=== PATIENT | female | born 1980 | race Two or more races ===

== ENCOUNTER 2025-01-17 18:10 | Emergency (ER) | payer MEDICAID, SELFPAY ==
[2025-01-17 18:44] VITALS: BP 134/89; PULSE 79; RESP 17; TEMP 37; O2SAT 99
--- NOTE | 2025-01-17 18:53 | XR_ITS ---
Examination: Toes left foot first digit 2 views Technique one AP lateral left first digit foot 2 views Date and time: January 22, 2025 1859 hrs. Indications: Left first digit foot pain and swelling 1 month Findings: Soft tissue swelling about the left foot first digit No fracture. No cortical bone destruction No foreign body Impression: No cortical bone obstruction no foreign body
--- NOTE | 2025-01-17 19:00 | PD.EDANKLE ---
Lower Extremity Injury RME/HPI General Chief Complaint: Ankle/Foot Injury Stated Complaint: PAIN IN L) GREAT TOE Time Seen by Provider: 01/17/25 18:53 Arrival date/time: 01/17/25 18:10 44F with possible history of DM (though patient is not sure if it was gestational only) presents to ED with 1 month of L big toe pain and discharge. Patient thinks it likely started with ingrown toenail. Patient went to PCP and got 5 days of penicillin w/o improvement. Limitations: no limitations Related Data Previous Rx's ?Medication ?Instructions ?Recorded Bisacodyl * (DULCOLAX *) 5 mg PO QDAY PRN CONSTIPATION ##40 04/08/15 Hydrocodone/Acetaminophen * (NORCO 1 tab PO Q12HR PRN ABDOMINAL 04/08/15 5/325 *) CRAMPING #12 tabs Vitamin * 1 tab PO QDAY #60 tabs 04/08/15 ibuprofen 600 mg tablet 600 mg PO Q8HR PRN PAIN #40 tabs 04/08/15 acetaminophen 300 mg-codeine 15 mg 1 tab PO Q12H PRN pain #14 tabs 11/09/23 tablet ibuprofen 800 mg tablet 800 mg PO Q8H PRN pain #20 tabs 11/09/23 clindamycin HCl 300 mg capsule 600 mg (2 x 300 mg) PO BID 7 days 01/17/25 #28 caps Allergies Allergy/AdvReac Type Severity Reaction Status Date / Time No Known Allergies Allergy Verified 01/17/25 18:14 Review of Systems Review of Systems Systems Reviewed: All systems reviewed, normal except as documented Constitutional Constitutional: Reports system reviewed and no additional complaints, except as documented, Denies fever(s) and Denies headache(s) ENT Ears, Nose, Mouth, and Throat: Denies disequilibrium and Denies headache(s) Cardiovascular Cardiovascular: Reports system reviewed and no additional complaints, except as documented, Denies chest pain and Denies dyspnea Respiratory Respiratory: Reports system reviewed and no additional complaints, except as documented, Denies cough and Denies dyspnea Gastrointestinal Gastrointestinal: Reports system reviewed and no additional complaints, except as documented, Denies abdominal pain, Denies nausea and Denies vomiting Integumentary/Breasts Skin/Breast: Reports as per HPI and Reports skin pain Neurologic Neurologic: Reports system reviewed and no additional complaints, except as documented, Denies confusion, Denies disequilibrium and Denies headache(s) Psychiatric Psychiatric: Denies confusion Past Medical History Past Medical History NEUROLOGIC: Negative Neurological Disorders or Seizures CARDIAC: Negative Cardiac Disorders or Congestive Heart Failure RESPIRATORY: Negative Chronic Obstructive Pulmonary Disease (COPD) GASTROINTESTINAL: Negative Gastrointestinal Disorders GENITOURINARY: Negative Genitourinary Disorders or Renal Disease REPRODUCTIVE: Negative Pelvic Inflammatory Disease MUSCULOSKELETAL: Negative Musculoskeletal Disorders ENDOCRINE: Positive Endocrine Disorders; Negative Diabetes Mellitus Type 1 or Diabetes Mellitus Type 2 HEMATOLOGIC: Negative Blood Disorders OTHER HISTORY: Negative Autoimmune Disease, Blood Transfusions, Blood Transfusion Reaction, Anesthesia Reactions, Organ Transplant, MRSA, Clostridium Difficile or Cancer Family History FAMILY HISTORY: Negative Family Psychiatric Problems, Family Respiratory Disorders, Family Cardiac Disorders, Family Gastrointestinal Problems or Family Cancer Surgical History SURGICAL: Positive Section; Negative Cardiac Surgery, Endocrine Surgery, Ear Surgery, Abdominal Surgery, Nephrectomy, Joint Replacement, Neurologic Surgery, Vasectomy or Organ Transplant Social History SMOKING STATUS: Never smoker ED Exam General Limitations: Present no limitations General appearance: Present alert and in no apparent distress Head Head exam: Present atraumatic Eye Eye exam: Present normal appearance, PERRL and EOMI ENT ENT exam: Present normal exam, normal oropharynx and mucous membranes moist Neck Neck exam: Present normal inspection, full ROM and trachea midline Chest Chest inspection: Present normal inspection and symmetric chest wall rise Respiratory Respiratory exam: Present normal lung sounds bilaterally Cardiovascular Cardiovascular exam: Present regular rate, normal rhythm and normal heart sounds Abdominal Exam Abdominal exam: Present soft and normal bowel sounds Extremities Exam Extremities exam: Present full ROM Expanded Lower Extremity Exam Foot/toe exam: Present full ROM (L big toenail), tenderness, swelling and erythema Back Exam Back exam: Present normal inspection and full ROM Neurological Exam Neurological exam: Present alert, oriented X3 and CN II-XII intact Psychiatric Psychiatric exam: Present normal affect and normal mood Skin Skin exam: Present warm, dry, intact and normal color Course Quality Measures none Orders Category Date Time Status XR toe LT min 2V Stat Exams 01/17/25 18:53 Completed Clindamycin [Cleocin] Med 01/17/25 19:31 Discontinued 300 mg PO X1 ONE Vital Signs Vital signs: Vital Signs Temperature 98.6 F 01/17/25 18:44 Pulse Rate 79 01/17/25 18:44 Respiratory Rate 17 01/17/25 18:44 Blood Pressure 134/89 H 01/17/25 18:44 Pulse Oximetry (%) 99 01/17/25 18:44 Oxygen Delivery Method Room Air 01/17/25 18:44 O2 at 99% on RA and WNLs Extremity Injury, Lower MDM Narrative MDM Narrative:: 44F with possible history of DM (though patient is not sure if it was gestational only) presents to ED with 1 month of L big toe pain and discharge. Patient thinks it likely started with ingrown toenail. Patient went to PCP and got 5 days of penicillin w/o improvement. Physical exam reveals L big toenail discharge and redness around nail. Patient is afebrile, calm, and alert. XR no osteo. Meds and addictions counselor assistant given. Patient data External records reviewed:: [facility] previous records Clinical information provided by:: patient Social determinants that could affect healthcare access:: none Patient has the following chronic illnesses:: DM How is presenting disease/condition affected by chronic disease/condition?: exacerbated by Evaluation data The following diagnostics were reviewed and interpreted by me:: radiology exam(s) Lab and/or radiology exams considered but not ordered:: ordered Interpretation Summary: above Medications / Prescriptions Medications or Prescriptions considered but not ordered:: ordered Medication administrations:: Medication Administration History Discontinued Medications Clindamycin HCl (Clindamycin 150 Mg Capsule) 300 mg PO X1 ONE Stop: 01/17/25 19:32 above Consultations Consultation(s) initiated? (list below): No Diagnosis Extremity Injury, Lower Differential Diagnosis: ankle sprain and strain, acute internal derangement of knee, puncture wound of foot, fracture of toe, ankle fracture and other (ingrown toenail, cellulitis, osteo) Most likely diagnosis given after review of the tests above:: ingrown toenail with infection Admission Indicated Admission indicated?: not indicated Admission Request Was there a request for admission?: No Disposition Plan Disposition Plan: Discharge Discharge Attestation Discharge Attestation: The patient and all family members were given an opportunity to ask questions and understood the discharge instructions. Discharge instructions specifically effects, indications for sooner follow up or return to the emergency department, and the expected course of current diagnosis. Patient condition: Stable Discharge Plan Plan Patient Disposition: HOME (Self Care) Discharge Disposition comment: Stable Prescriptions/Referrals Prescriptions/Med Rec: New clindamycin HCl 300 mg capsule 600 mg PO BID 7 Days Qty: 28 0RF No Action ibuprofen 600 MG tablet 600 mg PO Q8HR PRN (Reason: PAIN) Qty: 40 0RF Bisacodyl * (DULCOLAX *) 5 MG TABLET.DR 5 mg PO QDAY PRN (Reason: CONSTIPATION) Qty: 40 1RF Hydrocodone/Acetaminophen * (NORCO 5/325 *) 1 TAB tablet 1 tab PO Q12HR PRN (Reason: ABDOMINAL CRAMPING) Qty: 12 0RF Vitamin * 1 EACH tablet 1 tab PO QDAY Qty: 60 0RF acetaminophen-codeine 300-15 mg tablet 1 tab PO Q12H PRN (Reason: pain) Qty: 14 0RF ibuprofen 800 mg tablet 800 mg PO Q8H PRN (Reason: pain) Qty: 20 0RF Referrals: Homer Barnett MD [Primary Care Provider] - In 1 week Problem List Clinical Impression: Ingrowing toenail with infection Patient/Caregiver Discharge Instructions Education Materials: ED Toenail Ingrown Infec Abx Onl Additional Instructions: Please follow-up with PCP within 24-48 hours and return immediately if symptoms worsen. See PCP for referral to podiatry. Finish ABX. Print Language: Bruneian Stand Alone Forms: Patient Portal Info Letter PA/FACE PAINTER Supervising Physician JUAN/ELVER Supervising Physician: Dr. Lai
[2025-01-17] MEDS: CLINDAMYCIN 150 MG CAPSULE 300 MG PO (19:39)
== END 2025-01-17 19:55 | disposition home or self-care (01) ==
PROVIDERS: Emergency Provider Emergency Medicine; PCP Family Medicine
DX: L60.0 Ingrowing nail (principal)
CPT/HCPCS: 73660; 99283; A9270